=== PATIENT | female | born 1995 | race Caucasian/White ===

== ENCOUNTER 2017-02-07 10:20 | Emergency (ER) | payer OTHER ==
[2017-02-07] MEDS ORDERED: ONDANSETRON HCL 4 MG/2 ML VIAL IV ONE (12:00)
--- NOTE | 2017-02-07 12:20 | PD ---
HPI Chief Complaint nausea and vomiting Date Seen: Feb 07, 2017 Time Seen: 11:30 Travel History International Travel<30 Days: No Contact w/Intl Traveler<30Days: No Known Affected Area: No History of Present Illness HPI 21 YO at 32/2 with no PMHx presents with nausea and sometimes bilious emesis for three weeks and new onset cramping pain over the last 24 hours. Pt states she has vomited 4x in last 24 hours. Denies DVT pain, CP, SOB, diarrhea. Category 1 tracing on monitor Para: 0 : 1 History Past Medical History Medical History: Denies Significant Hx Obstetric History Obstetric History First Past Surgical History Surgical History: No Previous Surgery Family History Narrative Family History Father has HTN Social History Alcohol Use: No Tobacco Use: No Substance Abuse: No Allergies-Medications (Allergen,Severity, Reaction): Coded Allergies: Zithromax (Verified Allergy, Intermediate, 02/07/17) HIVES Uncoded Allergies: Lavender (Allergy, Unknown, Anaphylaxis, 02/07/17) Narrative Medication Phenergan Review of Systems General / Constitutional: No: Fever, Weight Gain, Weight Loss, Chills, Other HENT: No: Headaches, Vertigo, Dental Difficulties, Other Cardiovascular: No: Irregular Rhythm, Chest Pain or Discomfort, Palpitations, Tachycardia, Syncope, Varicosities, Edema, Cyanosis Respiratory: No: Cough, Short of Breath, Other Gastrointestinal: Nausea, Vomiting Genitourinary: Other (cramping) Skin: No Rash, No Itching, No Dryness, No Lumps, No Change in Pigmentation, No Change in Nails, No Alopecia, No Lesions Neurologic: Dizziness Psychiatric: No: Depression, Suicidal Ideations, Homicidal Ideation Physical Exam Narrative GENERAL: WDWN in NAD. SKIN: Warm and dry. HEAD: Normocephalic and atraumatic. EYES: No scleral icterus. No injection or drainage. EOMI ENT: No nasal drainage noted. Mucous membranes pink. Airway patent. NECK: Supple, trachea midline. CARDIOVASCULAR: Tachycardic in 120s with regular rhythm without murmurs, gallops , or rubs. RESPIRATORY: Breath sounds equal bilaterally with no increased WOB. No accessory muscle use. ABDOMEN/GI: Abdomen soft, non-tender, bowel sounds present, no rebound, no guarding Gravid to [32] weeks size Fundal Height: [32] GENITOURINARY: External Genitalia: intact and normal in appearance Cervix: [] Dilatation: [1] Effacement: [60] Station: [-2] Presentation: [vertex] Membranes: [intact] Uterine Contractions: [yes] FHT's: Category: [1] Baseline: [150s] Reactive: [yes] Variability: [moderate] Decels: [0] EXTREMITIES: No cyanosis or edema. BACK: Nontender without obvious deformity. No CVA tenderness. NEUROLOGICAL: Awake and alert. Motor and sensory grossly within normal limits. Normal speech. Data Data Vital Signs Reviewed: Yes MDM Medical Record Reviewed: Yes Narrative Course / MDM 21 YO at 32/2 with no PMHx presents with 3 weeks of nausea and vomiting and 24 hours of cramping pain 2/2 likely dehydration. 1. IUP at 32/2 - Category 1 tracing - Re-establishing care with Dr Valdes after being in [place] for 2 months - Monitor 2. Nausea/vomiting/carmping - LR IVF bolus x2 - Labs: CBC w/diff, UA, BMP - Zofran IV and Reglan for nausea - Monitor and observe 3. Dispo: likely home today with Phenergan PO and suppositories Diagnosis Diagnosis: Primary Impression: Nausea and vomiting during Rogelio Gallegos MD R1 Feb 07, 2017 12:19
[2017-02-07] MEDS ORDERED: PROMETHAZINE HCL 25 MG SUPP RECTAL PRN (12:30)
[2017-02-07] MEDS ORDERED: PROMETHAZINE HCL 25 MG TAB PO PRN (12:30)
[2017-02-07 12:41] LABS: HEMATOCRIT 24.3 % (35.0-46.0); MEAN CELL VOLUME 81.9 FL (80.0-100.0); MEAN CORPUSCULAR HEMOGLOBIN 27.7 PG (27.0-34.0); MEAN CORPUSCULAR HGB CONC 33.9 % (32.0-36.0); PLATELET COUNT 398 TH/MM3 (150-450); RED BLOOD COUNT 2.96 MIL/MM3 (4.00-5.30); RED CELL DISTRIBUTION WIDTH 15.2 % (11.6-17.2); REVIEW FLAG FINAL; WHITE BLOOD COUNT 15.8 TH/MM3 (4.0-11.0)
[2017-02-07 12:58] LABS: BICARBONATE 21.3 MEQ/L (21.0-32.0); POTASSIUM 3.8 MEQ/L (3.5-5.1)
[2017-02-07 12:59] LABS: BACTERIA, URINE MANY /hpf; BLOOD, URINE SMALL (NEG); COMMENT (UR) CULTURE INDICATED; CULTURE IF INDICATED CULTURE INDICATED; GLUCOSE,URINE NEG (NEG); KETONE, URINE NEG (NEG); MUCUS URINE FEW /lpf (OCC); NITRITE,URINE NEG (NEG); SQUAMOUS EPITHELIAL CELL URINE 2 /hpf (0-5); URINE COLOR YELLOW (YELLW/STRAW)
--- NOTE | 2017-02-07 13:17 | PD ---
History of Present Illness Date Seen: Feb 07, 2017 History of Present Illness Patient is a 21-year-old white female at 32 weeks currently unregistered for care. [facility] when she [id number]. She presents complaining of abdominal pain, nausea and vomiting today. She denies bleeding or rupture the membranes. heart rate is reactive and she is having some irregular spaced out contractions and uterine irritability. Exam --size equal dates heart rate is reactive, and some irregular contractions noted Cervix is 1 cm/60%/ and -2 Labs shows a positive urinalysis with many bacteria large leukocyte esterase 1+ protein trace blood , she is anemic with H&H of 8 and 24, the WBC 15,000 Treatment--patient given done at 2 L IV fluid 8 mg Zofran IV,. prescriptions for home use of Phenergan by mouth and rectal suppository, iron sulfate 325mg 3 times a day with meals, Macrobid 100 mg by mouth twice a day for a week She is to be at bedrest as much as possible increase her liquid intake use Tylenol liberally for pain. Heating pad or hot bath for comfort she needs to establish care [facility] Bull Sierra II, MD Feb 07, 2017 13:17
[2017-02-07] MEDS ORDERED: SODIUM CHLORIDE 0.9% FLUSH 10 ML FLUSH IV FLUSH SCH (21:00)
== END 2017-02-07 13:56 | disposition home or self-care (01) ==
LOC: HOBED 10:20
DX: O21.2 Late vomiting of pregnancy (principal); O23.43 Unspecified infection of urinary tract in pregnancy, third trimester; B96.20 Unspecified Escherichia coli [E. coli] as the cause of diseases classified elsewhere; Z3A.32 32 weeks gestation of pregnancy
CPT/HCPCS: 80048; 81001; 85027; 87077; 87086; 87186; 96361; 96374